=== PATIENT | female | born 1985 | race Caucasian/White ===

== ENCOUNTER 2017-12-26 22:03 | Emergency (ER) | payer BC, MEDICAID ==
[~2017-12-26 22:03] MED LIST: NORE1TAB51 PO
--- NOTE | 2017-12-26 22:52 | PD ---
HPI Chief Complaint Contractions Date Seen: December 26, 2017 Time Seen: 22:45 Travel History International Travel<30 Days: No Contact w/Intl Traveler<30Days: No Known Affected Area: No History of Present Illness HPI Patient is 32-year-old white female at [address] Randall who presents complaining contractions began earlier in the day noticed since gotten more -frequent regular and more painful. Patient was checked in the office was 2 cm earlier last week. She denies any bleeding or leakage of fluid. heart rate tracing is reactive. That she is kali every 3 minutes. Weeks Gestation: 37 Para: 2 : 3 History Obstetric History Obstetric History 2 vaginal deliveries Social History Alcohol Use: No Tobacco Use: No Substance Abuse: No Allergies-Medications (Allergen,Severity, Reaction): Coded Allergies: No Known Allergies (Unverified , 09/22/16) Home Meds Reported Medications Norethindrone (Nia-35) 0.35 Mg Tab, 0.35 MG PO DAILY for Contraception, PACK 0 Refills 09/22/16 Review of Systems General / Constitutional: No: Fever, Weight Gain, Chills, Other Eyes: No: Diploplia, Blurred Vision, Visual changes, Pain, Photophobia HENT: No: Headaches, Vertigo, Lightheadedness Cardiovascular: No: Irregular Rhythm, Chest Pain or Discomfort, Palpitations, Tachycardia, Syncope, Varicosities, Edema, Cyanosis Respiratory: No: Cough, Short of Breath, Other Gastrointestinal: No: Nausea, Vomiting, Diarrhea Genitourinary: No: Decreased Urinary Output, Oliguria Musculoskeletal: No: Limited ROM, Weakness, Cramping, Edema, Pain Skin: No Rash, No Itching, No Dryness, No Lumps, No Change in Pigmentation, No Change in Nails, No Alopecia, No Lesions Neurologic: No: Weakness, Dizziness, Syncope, Focal Abnormalities, Coordination Problem, Headache, Slurred Speech, Seizures Psychiatric: No: Depression, Suicidal Ideations, Homicidal Ideation Endocrine: No: Heat Intolerance, Cold Intolerance, Polydipsia, Polyuria, Other Physical Exam Narrative GENERAL: Well-nourished, well-developed patient. SKIN: Warm and dry. HEAD: Normocephalic and atraumatic. EYES: No scleral icterus. No injection or drainage. ENT: No nasal drainage noted. Mucous membranes pink. Airway patent. NECK: Supple, trachea midline. No JVD. CARDIOVASCULAR: Regular rate and rhythm without murmurs, gallops, or rubs. RESPIRATORY: Breath sounds equal bilaterally. No accessory muscle use. BREASTS: Bilateral exam showed no masses , no retractions, no nipple discharge. ABDOMEN/GI: Abdomen soft, non-tender, bowel sounds present, no rebound, no guarding Gravid to [-37] weeks size Fundal Height: [-37] GENITOURINARY: External Genitalia: intact and normal in appearance BUS glands: [-] Cervix: [post-] Dilatation: [-2] Effacement: [20-] Station: [-3] Presentation: [-vtx] Membranes: [intact ] Uterine Contractions: [-q 3 min] FHT's: Category: [1-] Baseline: [133-] Reactive: [-R] Variability: [mod-] Decels: [none-] EXTREMITIES: No cyanosis or edema. BACK: Nontender without obvious deformity. No CVA tenderness. NEUROLOGICAL: Awake and alert. Motor and sensory grossly within normal limits. Five out of 5 muscle strength in all muscle groups. Normal speech. MDM Interpretation(s) Patient is 32-year-old white female at 37 weeks presents clinic contractions. Her NST is reactive she is kali every 3 minutes however cervix is the same as it was a week ago 2 cm posterior and quite thick Plan Plan to discharge home to bedrest, use of Tylenol as needed. She is to continue to p.o. hydrate and rest and observe her pain pattern if pains worsen and increase in intensity that may be signed her cervix is changing she should return for repeat check otherwise stay at home and wait to they do get worse or if her water breaks or if she has significant bleeding come back Diagnosis Diagnosis: Primary Impression: False labor at or after 37 completed weeks of gestation Disposition: 01 DISCHARGE HOME Condition: Stable Patient Instructions: General Instructions, Having Your Baby: The Labor Process (GEN), Movement (ED), Abdominal Pain in (ED) Departure Forms: Tests/Procedures Gerry Barry II, MD December 26, 2017 22:52
== END 2017-12-26 23:08 | disposition home or self-care (01) ==
LOC: HOBED 22:03
DX: O47.1 False labor at or after 37 completed weeks of gestation (principal); Z3A.37 37 weeks gestation of pregnancy
CPT/HCPCS: 59025

== ENCOUNTER 2018-01-05 06:16 | Inpatient (IN) | payer BC ==
[~2018-01-05] VITALS: Ht 170.2 cm; Wt 77.1 kg
[2018-01-05] MEDS ORDERED: OXYTOCIN 30 UNITS/NS 500ML PREMIX IV PRN (06:30)
[2018-01-05] MEDS ORDERED: PRENTAB7 (06:34)
[2018-01-05] MEDS ORDERED: OXYTOCIN 30 UNITS 500ML PREMIX IV ONE (07:00)
[2018-01-05] MEDS ORDERED: NS 1000 ML IV PRN (07:00)
[2018-01-05] MEDS ORDERED: LACTATED RINGER'S 1000 ML BOLUS IV PRN (07:00)
[2018-01-05] MEDS ORDERED: ONDANSETRON HCL 4 MG/2 ML VIAL IV PUSH PRN (07:00)
[2018-01-05] MEDS ORDERED: MINERAL OIL 10 ML VIAL TOPICAL PRN (07:00)
[2018-01-05] MEDS ORDERED: CITRIC ACID-SODIUM CITRATE LIQ 30 ML UDC PO SCH (07:00)
[2018-01-05] MEDS ORDERED: NS 500 ML BOLUS IV PRN (07:00)
[2018-01-05] MEDS ORDERED: LIDOCAINE HCL 1% 50 ML VIAL I-DERMAL PRN (07:00)
[2018-01-05] MEDS ORDERED: LIDOCAINE HCL 1% 50 ML VIAL INFIL PRN (07:00)
[2018-01-05] MEDS ORDERED: LACTATED RINGER'S 1000 ML IV SCH (07:00)
[2018-01-05 07:28] LABS: AUTOMATED NEUTROPHIL # 5.4 TH/MM3 (1.8-7.7); BASOPHIL % 0.5 % (0.0-2.0); EOSINOPHIL # 0.1 TH/MM3 (0-0.4); EOSINOPHIL % 0.8 % (0.0-4.0); HEMATOCRIT 36.6 % (35.0-46.0); HEMOGLOBIN 12.3 GM/DL (11.6-15.3); LYMPH % 23.2 % (9.0-44.0); LYMPHOCYTE # 1.8 TH/MM3 (1.0-4.8); MEAN CELL VOLUME 90.6 FL (80.0-100.0); MEAN CORPUSCULAR HEMOGLOBIN 30.4 PG (27.0-34.0); MEAN CORPUSCULAR HGB CONC 33.5 % (32.0-36.0); MEAN PLATELET VOLUME 9.5 FL (7.0-11.0); MONO % 6.8 % (0.0-8.0); MONOCYTE # 0.5 TH/MM3 (0-0.9); NEUT % 68.7 % (16.0-70.0); PLATELET COUNT 191 TH/MM3 (150-450); RED BLOOD COUNT 4.04 MIL/MM3 (4.00-5.30); RED CELL DISTRIBUTION WIDTH 14.9 % (11.6-17.2); WHITE BLOOD COUNT 7.8 TH/MM3 (4.0-11.0)
--- NOTE | 2018-01-05 08:06 | MH ---
cc: Casandra Randall MD DATE OF ADMISSION: 01/05/2018 REASON FOR ADMISSION: She is being admitted on 01/10/2018 for induction of labor. HISTORY OF PRESENT ILLNESS: She is 31 years old, 3, para 2-0-0-2, intrauterine at 39+ weeks. care has been with [facility], uncomplicated. She is large for gestational age, has a history of preeclampsia in 2012 and history of a precipitous vaginal delivery in 2015. She is Group B Strep negative. GCT was 81. PAST OB HISTORY: Significant for 2 vaginal deliveries, one in 2012 with preeclampsia, and one in 2015 with precipitous labor. PAST DIESEL ENGINEER HISTORY: Unremarkable. She had a normal Pap smear in May 2017. PAST MEDICAL HISTORY: She denies hypertension, diabetes or asthma. PAST SURGICAL HISTORY: She had spinal fusion in 2005, lithotripsy in 2004 and again in 2009. SOCIAL HISTORY: She denies toxic habits. MEDICATIONS: She takes vitamins and iron. ALLERGIES: SHE HAS NO KNOWN DRUG ALLERGIES. PHYSICAL EXAMINATION: VITAL SIGNS: Blood pressure 110/52. She is 171 pounds. HEAD, HEART, CHEST AND LUNG EXAMS: Within normal limits. ABDOMEN: Soft, nontender, gravid. PELVIC EXAM: She is 2 cm dilated, 80% effaced, -1 station. EXTREMITIES: No edema, cyanosis, clubbing. Nontender. ASSESSMENT AND PLAN: She is 31 years old, 3, para 2, intrauterine at 39+ weeks for induction of labor due to large for gestational age, history of preeclampsia and precipitous delivery. The risks, benefits and alternatives have been discussed with the patient. All of her questions have been answered. Her Group B Strep is negative. MD ALBA Calero/RE , 04:04 PM , 04:34 PM
--- NOTE | 2018-01-05 08:07 | PD.LABORPN ---
Subjective Subjective IUP at 39 wks, IOL for suspected LGA, pt comfortable, +FM Objective Vital Signs vss afeb Objective Pelvic Exam: Cervix: [-] Dilatation: [-] 3 Effacement: [-] 70 Station: [-] -1 Presentation: [-] vtx Membranes: [intact or ruptured] arom clear Uterine Contractions: [-] FHT's: Category: [-] 1 Baseline: [-] Reactive: [-] R Variability: [-] good Decels: [-] no Weeks Gestation: 39 Gest Age Assessed Date: January 05, 2018 Gest Age Assessed Time: 08:02 Pt started active labor?: No Medical induction of labor?: Yes Medical induction start date: January 05, 2018 Medical induction start time: 08:02 Artificial ROM date: January 05, 2018 Artifical ROM time: 08:03 Assessment/Plan Problem List: (1) Normal , repeat ICD Codes: Z34.80 - Normal in multigravida Status: Acute Assessment and Plan IUP at 39 wk, IOL for suspected LGA AROM clear, start pitocin mar, analgesia prn anticipate Casandra Randall MD January 05, 2018 08:07
[2018-01-05 08:15] LABS: BACTERIA, URINE RARE /hpf; BILIRUBIN, URINE NEG (NEG); BLOOD, URINE NEG (NEG); GLUCOSE,URINE NEG (NEG); KETONE, URINE NEG (NEG); MUCUS URINE FEW /lpf (OCC); NITRITE,URINE NEG (NEG); PH, URINE 6.5 (5.0-8.5); SQUAMOUS EPITHELIAL CELL URINE 4 /hpf (0-5); URINE COLOR YELLOW (YELLW/STRAW); URINE LEUKOCYTE ESTERASE NEG (NEG)
[2018-01-05] MEDS ORDERED: OXYTOCIN 30 UNITS-500ML PREMIX 500 ML IV PRN (08:15)
[2018-01-05] MEDS ORDERED: fentaNYL 2MCG-BUPIV 0.125% INJ 150 ML EPIDURAL ONE (09:10)
[2018-01-05] MEDS ORDERED: LIDOCAINE 1%/EPINEPHrine 1:200,000 PF SOLN 30 ML VIAL ONE (09:26)
[2018-01-05] MEDS ORDERED: ePHEDrine/NS 25 MG/5 ML SYRINGE ONE (09:51)
--- NOTE | 2018-01-05 13:22 | PD.OB.DELI ---
Weeks gestation: 39 Gest age assessed date: January 05, 2018 Gest age assessed time: 08:02 Pt started active labor?: Yes Active labor start date: January 05, 2018 Active labor start time: 09:00 Medical induction of labor?: Yes Medical induction start date: January 05, 2018 Medical induction start time: 08:02 Artificial rupture of membrane: Yes Artificial ROM date: January 05, 2018 Artifical ROM time: 08:03 Anesthesia: Epidural Episiotomy: None Vaginal Delivery: Normal Presentation: Occiput anterior (AGUSTO) Nuchal Cord: None Delayed cord clamping (45 sec): Yes Infant: Male Delivery date: January 05, 2018 Delivery time: 13:12 One Minute : 9 Five Minute : 9 Placenta: Spontaneous delivery Laceration: 1 deg Repair: Chromic interrupted Estimated blood loss: 350cc Casandra Randall MD January 05, 2018 13:22
[2018-01-05] MEDS ORDERED: DOCUSATE SODIUM 50 MG/SENNA 8.6 MG TAB PO PRN (13:30)
[2018-01-05] MEDS ORDERED: ONDANSETRON ODT 4 MG TAB PO PRN (13:30)
[2018-01-05] MEDS ORDERED: WITCH HAZEL 50%/GLYCERIN 12.5% 40 PAD JAR TOPICAL PRN (13:30)
[2018-01-05] MEDS ORDERED: SODIUM CHLORIDE 0.9% FLUSH 10 ML FLUSH IV FLUSH PRN (13:30)
[2018-01-05] MEDS ORDERED: OXYTOCIN 30 UNITS-500ML PREMIX 500 ML IV SCH (13:30)
[2018-01-05] MEDS ORDERED: ALUMINUM/MAGNESIUM/SIMETH 30 ML CUP PO PRN (13:30)
[2018-01-05] MEDS ORDERED: BENZOCAINE 20% TOPICAL SPRAY 60 ML CAN TOPICAL PRN (13:30)
[2018-01-05] MEDS ORDERED: DIPHTH/TETANUS/ACEL PERTUSSIS (BOOSTER) 0.5 ML VIAL/PFS IM ONE (16:00)
[2018-01-05] MEDS ORDERED: MEASLES, MUMPS, RUBELLA VACCINE 0.5 ML VIAL SQ ONE (16:00)
[2018-01-05] MEDS: IBUPROFEN 800 MG TAB PO PRN (17:29)
[2018-01-05 20:31] VITALS: BP 108/64; PULSE 66; RESP 17; TEMP 97.9
[2018-01-05] MEDS ORDERED: ZOLPIDEM TARTRATE 5 MG TAB PO PRN (21:00)
[2018-01-05] MEDS ORDERED: SODIUM CHLORIDE 0.9% FLUSH 10 ML FLUSH IV FLUSH SCH (21:00)
[2018-01-06] MEDS: ACETAMINOPHEN 325 MG TAB PO PRN ×5 (00:42→22:55)
[2018-01-06] MEDS: IBUPROFEN 800 MG TAB PO PRN ×3 (01:39→22:55)
--- NOTE | 2018-01-06 08:50 | HHI.OB ---
Subjective Post Day: 1 Remarks Doing well nursing well desires discharge today no complaints good support at home Objective Vitals/I&O Vital Signs Date Time Temp Pulse Resp B/P (MAP) Pulse Ox O2 Delivery O2 Flow Rate FiO2 01/05/18 20:31 97.9 66 17 108/64 (79) Objective Remarks GENERAL: Well-nourished, well-developed patient. CARDIOVASCULAR: Regular rate and rhythm without murmurs, gallops, or rubs. RESPIRATORY: Breath sounds equal bilaterally. No accessory muscle use. ABDOMEN/GI: Abdomen soft, non-tender. Fundus: Firm, non-tender at umbilicus. GENITOURINARY: Light to moderate bleeding. EXTREMITIES: No cyanosis or edema, non-tender, without signs of DVT. Medications and IVs Current Medications Medications (Trade) Dose Ordered Sig/Judah Route Start Time Stop Time Status Last Admin (NS Flush) 2 ml BID IV FLUSH 01/05/18 21:00 (NS Flush) 2 ml UNSCH PRN IV FLUSH 01/05/18 13:30 (Tylenol) 650 mg Q4H PRN PO 01/05/18 13:30 01/06/18 08:42 (Motrin) 800 mg Q8H PRN PO 01/05/18 13:30 01/06/18 01:39 (Americaine 20% Top Spr) 1 spray Q4H PRN TOPICAL 01/05/18 13:30 (Tucks Pads) 1 applic QID PRN TOPICAL 01/05/18 13:30 (Kamryn-Colace) 2 tab Q12H PRN PO 01/05/18 13:30 01/06/18 00:42 (Ambien) 5 mg HS PRN PO 01/05/18 21:00 (Mag-Al Plus Susp Liq) 15 ml Q8H PRN PO 01/05/18 13:30 (Zofran Odt) 4 mg Q6H PRN PO 01/05/18 13:30 Assessment/Plan Problem List: (1) Normal , repeat ICD Codes: Z34.80 - Normal in multigravida Status: Acute Assessment and Plan discharge today if baby can go RTO 2 weeks circumcision on day 8 with Sabi counseled on PPD, increased risk of DVT, symptoms of PP preeclampsia Rae Saucedo MD January 06, 2018 08:50
[2018-01-06] MEDS ORDERED: IBUP1TAB7 PO (08:51)
--- NOTE | 2018-01-06 08:51 | HHI.DCPOC ---
Discharge Care Plan Report Symptoms to Your Doctor -Temperature above 100.5 degrees -Redness, of incision or excessive or foul smelling drainage -Unusual pain or calf pain -Increased vaginal bleeding -Painful or difficulty urinating -Feelings of extreme sadness or anxiety after 2 weeks Goals to Promote Your Health * To prevent worsening of your condition and complications * To maintain your health at the optimal level Directions to Meet Your Goals Take your medications as prescribed Follow your dietary instruction Follow activity as directed Ensure plenty of rest for recovery Drink fluids for hydration Keep your appointments as scheduled Take your immunizations and boosters as scheduled If your symptoms worsen call your PCP, if no PCP go to Urgent Care Center or Emergency Room Smoking is Dangerous to Your Health. Avoid second hand smoke Call the 24-hour crisis hotline for domestic abuse at Rae Saucedo MD January 06, 2018 08:51
[2018-01-07] MEDS: ACETAMINOPHEN 325 MG TAB PO PRN (06:12)
[2018-01-07] MEDS: IBUPROFEN 800 MG TAB PO PRN (07:33)
--- NOTE | 2018-01-07 09:39 | HHI.OB ---
Subjective Post Day: 2 Remarks doing well and ready for discharge home circumcision pain controlled RTO 2 weeks Objective Objective Remarks GENERAL: Well-nourished, well-developed patient. CARDIOVASCULAR: Regular rate and rhythm without murmurs, gallops, or rubs. RESPIRATORY: Breath sounds equal bilaterally. No accessory muscle use. ABDOMEN/GI: Abdomen soft, non-tender. Fundus: Firm, non-tender at umbilicus. GENITOURINARY: Light to moderate bleeding. EXTREMITIES: No cyanosis or edema, non-tender, without signs of DVT. Medications and IVs Current Medications Medications (Trade) Dose Ordered Sig/Judah Route Start Time Stop Time Status Last Admin (NS Flush) 2 ml BID IV FLUSH 01/05/18 21:00 (NS Flush) 2 ml UNSCH PRN IV FLUSH 01/05/18 13:30 (Tylenol) 650 mg Q4H PRN PO 01/05/18 13:30 01/07/18 06:12 (Motrin) 800 mg Q8H PRN PO 01/05/18 13:30 01/07/18 07:33 (Americaine 20% Top Spr) 1 spray Q4H PRN TOPICAL 01/05/18 13:30 (Tucks Pads) 1 applic QID PRN TOPICAL 01/05/18 13:30 (Kamryn-Colace) 2 tab Q12H PRN PO 01/05/18 13:30 01/06/18 00:42 (Ambien) 5 mg HS PRN PO 01/05/18 21:00 (Mag-Al Plus Susp Liq) 15 ml Q8H PRN PO 01/05/18 13:30 (Zofran Odt) 4 mg Q6H PRN PO 01/05/18 13:30 Assessment/Plan Problem List: (1) Normal , repeat ICD Codes: Z34.80 - Normal in multigravida Status: Acute Assessment and Plan discharge today if baby can go RTO 2 weeks circumcision on day 8 with Moile counseled on PPD, increased risk of DVT, symptoms of PP preeclampsia PPD 2 Doing well and home with follow up in 2 weeks counseled in depth on when to call between now Rae Warren MD January 07, 2018 09:39
--- NOTE | 2018-01-07 09:39 | HHI.DCPOC ---
Discharge Care Plan Report Symptoms to Your Doctor -Temperature above 100.5 degrees -Redness, of incision or excessive or foul smelling drainage -Unusual pain or calf pain -Increased vaginal bleeding -Painful or difficulty urinating -Feelings of extreme sadness or anxiety after 2 weeks Goals to Promote Your Health * To prevent worsening of your condition and complications * To maintain your health at the optimal level Directions to Meet Your Goals Take your medications as prescribed Follow your dietary instruction Follow activity as directed Ensure plenty of rest for recovery Drink fluids for hydration Keep your appointments as scheduled Take your immunizations and boosters as scheduled If your symptoms worsen call your PCP, if no PCP go to Urgent Care Center or Emergency Room Smoking is Dangerous to Your Health. Avoid second hand smoke Call the 24-hour crisis hotline for domestic abuse at Rae Saucedo MD January 07, 2018 09:39
== END 2018-01-07 12:15 | disposition home or self-care (01) | DRG 775 ==
LOC: H2EA 06:16 → H1EA 16:22
PROVIDERS: ADMIT Obstetrics & Gynecology; ATTEND Obstetrics & Gynecology
PROC: 10E0XZZ Delivery of Products of Conception, External Approach (ICD-10-PCS; principal; 2018-01-05)
PROC: 10907ZC Drainage of Amniotic Fluid, Therapeutic from Products of Conception, Via Natural or Artificial Opening (ICD-10-PCS; 2018-01-05)
PROC: 3E033VJ Introduction of Other Hormone into Peripheral Vein, Percutaneous Approach (ICD-10-PCS; 2018-01-05)
PROC: 0HQ9XZZ Repair Perineum Skin, External Approach (ICD-10-PCS; 2018-01-05)
PROC: 00HU33Z Insertion of Infusion Device into Spinal Canal, Percutaneous Approach (ICD-10-PCS; 2018-01-05)
PROC: 3E0R3BZ Introduction of Anesthetic Agent into Spinal Canal, Percutaneous Approach (ICD-10-PCS; 2018-01-05)
DX: O36.63X0 Maternal care for excessive fetal growth, third trimester, not applicable or unspecified (principal); O70.0 First degree perineal laceration during delivery; Z98.1 Arthrodesis status; Z37.0 Single live birth; Z3A.39 39 weeks gestation of pregnancy
CPT/HCPCS: 80307; 81001; 85025; 86900; 86901; G0481; J2590